=== PATIENT | female | born 1980 | race Caucasian/White ===

== ENCOUNTER 2017-12-13 08:23 | Emergency (ER) | payer OTHER ==
[~2017-12-13] VITALS: Ht 162.6 cm; Wt 177.5 kg
[~2017-12-13 08:23] MED LIST: AMLO5TAB22 PO; BACT800T5 PO; HYDR-3533 PO; LISI-363 PO; TAB-TAB PO
[2017-12-13 08:26] VITALS: BP 176/105; PULSE 109; RESP 16; TEMP 98
[2017-12-13] MEDS ORDERED: NIFE20 PO (08:36)
[2017-12-13] MEDS ORDERED: CLON0.1T PO (08:36)
[2017-12-13] MEDS ORDERED: LABE300T PO (08:36)
--- NOTE | 2017-12-13 09:46 | PD ---
HPI Chief Complaint: Back/ Neck Pain or Injury Time Seen by Provider: 09:10 Travel History International Travel<30 days: No Contact w/Intl Traveler<30days: No Traveled to known affect area: No History of Present Illness HPI 37-year-old female with nontraumatic low back pain 1 week. Cannot recall specific injury or trauma. She reports pain is located to her low back. Worse with movement and twisting of the torso. Slightly relieved with rest. Symptom severity is mild to moderate. Slightly relieved with [id number] Motrin. She denies fever, incontinence, saddle anesthesia, paresthesia or weakness of the extremities. PFSH Past Medical History Arthritis: Yes Asthma: Yes Autoimmune Disease: No Bipolar Disorder: Yes Anxiety: Yes Depression: No Heart Rhythm Problems: Yes (IRREGULAR) Cancer: No Cardiac Catheterization: Yes Cardiovascular Problems: Yes High Cholesterol: Yes Chemotherapy: No Chest Pain: Yes Congestive Heart Failure: No COPD: Yes Cerebrovascular Accident: No Diabetes: No Diminished Hearing: No Endocrine: No Gastrointestinal Disorders: Yes (choleycystectomy apr 2012) GERD: No Genitourinary: Yes Headaches: No Hiatal Hernia: No Hypertension: Yes Immune Disorder: No Implanted Vascular Access Dvce: No Kidney Stones: Yes (2009) Musculoskeletal: Yes (DDD) Neurologic: Yes Psychiatric: Yes Reproductive: No Respiratory: Yes Immunizations Current: Yes Migraines: Yes Myocardial Infarction: Yes ("mild heart attack") Radiation Therapy: No Renal Failure: No Seizures: No Sickle Cell Disease: No Sleep Apnea: Yes (NGA) Thyroid Disease: No Ulcer: No Influenza Vaccination: Yes PNEUMOCCOCAL Vaccine (Year): 2009 ?: Not Menopausal: No : 0 Past Surgical History Abdominal Surgery: Yes (gastric bi-pass january 2013. ) AICD: No Arteriovenous Shunt: No Cardiac Surgery: No Cholecystectomy: Yes Coronary Artery Bypass Graft: No Ear Surgery: No Endocrine Surgery: Yes (TONSILLECTOMY AND ADENOIDECTOMY-3 YRS OLD) Eye Surgery: No Genitourinary Surgery: No Gynecologic Surgery: No Insulin Pump: No Joint Replacement: No Neurologic Surgery: No Oral Surgery: No Pacemaker: No Thoracic Surgery: No Tonsillectomy: Yes Other Surgery: Yes (ADENOIDS) Family History Family Myocardial Infarction: Yes Social History Alcohol Use: No Tobacco Use: No Substance Use: No Allergies-Medications (Allergen,Severity, Reaction): Coded Allergies: Fish Containing Products (Unverified Allergy, Severe, Rash, 12/13/17) alprazolam (Unverified Allergy, Severe, RASH???, 12/13/17) levetiracetam (Unverified Allergy, Severe, Swelling, 12/13/17) lorazepam (Unverified Allergy, Severe, RASH??, 12/13/17) metoclopramide (Unverified Allergy, Severe, Swelling, 12/13/17) nitrofurantoin (Unverified Allergy, Severe, HIVES, 12/13/17) oxycodone (Unverified Allergy, Severe, RASH, 12/13/17) tramadol (Unverified Allergy, Severe, UNKNOWN, 12/13/17) acetaminophen (Unverified Allergy, Mild, Rash, 12/13/17) azithromycin (Unverified Allergy, Mild, rash, 12/13/17) codeine (Unverified Allergy, Mild, Rash, 12/13/17) Reported Meds & Prescriptions Reported Meds & Active Scripts Active Reported Clonidine (Clonidine HCl) 0.1 Mg Tab 0.1 Mg PO HS Nifedipine 20 Mg Cap 30 Mg PO BID Labetalol (Labetalol HCl) 300 Mg Tab 300 Mg PO BID Review of Systems Except as stated in HPI: all other systems reviewed are Neg General / Constitutional: No: Fever Genitourinary: No: Dysuria Physical Exam Narrative GENERAL: Alert and well-appearing 37-year-old SKIN: Warm and dry. HEAD: Normocephalic. EYES: No scleral icterus. No injection or drainage. NECK: Supple CARDIOVASCULAR: Regular rate and rhythm RESPIRATORY: Breath sounds equal bilaterally. No accessory muscle use. GASTROINTESTINAL: Abdomen soft, non-tender, nondistended. MUSCULOSKELETAL: No cyanosis, or edema. Normal strength and sensation in lower extremities. BACK: +TTP lumbar spine. No erythema, fluctuance or evidence of pilonidal cyst. Without obvious deformity. No CVA tenderness. Data Data Last Documented VS Vital Signs Date Time Temp Pulse Resp B/P (MAP) Pulse Ox O2 Delivery O2 Flow Rate FiO2 12/13/17 08:26 98.0 109 16 176/105 (128) Orders Orders Ed Urine Pregnancytest Poc (12/13/17 09:32) Spine, Lumbar - Ltd (Ap & Lat) (12/13/17 ) MDM Medical Decision Making Medical Screen Exam Complete: Yes Emergency Medical Condition: Yes Interpretation(s) Urine negative Differential Diagnosis Lumbar strain, herniated disc, lumbar fracture, pilonidal cyst Narrative Course 29-year-old female here with low back pain 1 week. She is well-appearing. Diagnosis Primary Impression: Lumbar strain Qualified Codes: S39.012A - Strain of muscle, fascia and tendon of lower back , initial encounter Referrals: Primary Care Physician Additional Instructions: Medication as directed Light stretching Follow-up with your primary doctor Scripts Methocarbamol (Robaxin) 750 Mg Tab 750 MG PO QID for Muscle Spasm, #15 TAB 0 Refills Prov: Sydni Persaud 12/13/17 Meloxicam (Meloxicam) 15 Mg Tab 15 MG PO DAILY for Arthritis Pain, #30 TAB 0 Refills Prov: Sydni Persaud 12/13/17 Disposition: 01 DISCHARGE HOME Condition: Stable Sydni Persaud Dec 13, 2017 09:46
--- NOTE | 2017-12-13 10:11 | RADRPT ---
EXAM DATE/TIME: 12/13/2017 09:46 [facility] COMPARISON: No previous studies available for comparison. INDICATIONS : Low back pain MEDICAL HISTORY : Hypertension. Myocardial infarction. DDD SURGICAL HISTORY : Gastric bypass. Cholecystectomy. ENCOUNTER: Initial ACUITY: 2 weeks PAIN SCORE: 9/10 LOCATION: low back FINDINGS: There is a moderate severity curvature of the thoracolumbar spine convex towards the right. In later al projection, vertebral bodies of the lumbar spine are in normal alignment with preservation of vert ebral body height. Posterior elements pedicles and transverse processes are intact. Flocculent calc ification in the pelvis probably related to uterine fibroids. Moderate stool within the pelvic colon . CONCLUSION: No evidence of compression deformity or spondylolisthesis. Moderate right scoliosis. Charles Caal MD on December 13, 2017 at 10:07 Board Certified Radiologist. This report was verified electronically.
[2017-12-13] MEDS ORDERED: ROBA750T PO (10:26)
[2017-12-13] MEDS ORDERED: MELO15TA20 PO (10:26)
[2017-12-13] MEDS ORDERED: KETOROLAC TROMETHAMINE 60 MG/2 ML (IM) VIAL IM ONE (10:30)
[2017-12-13 10:32] VITALS: BP 152/91
== END 2017-12-13 11:05 | disposition home or self-care (01) ==
LOC: PHEFT 08:23
DX: S39.012A Strain of muscle, fascia and tendon of lower back, initial encounter (principal); X58.XXXA Exposure to other specified factors, initial encounter; F31.9 Bipolar disorder, unspecified; F41.9 Anxiety disorder, unspecified; I10 Essential (primary) hypertension; E78.00 Pure hypercholesterolemia, unspecified; M19.90 Unspecified osteoarthritis, unspecified site; J44.9 Chronic obstructive pulmonary disease, unspecified; I25.2 Old myocardial infarction
CPT/HCPCS: 72100; 84703; 96372; 99283; J1885

== ENCOUNTER 2018-01-19 20:21 | Emergency (ER) | payer OTHER ==
[~2018-01-19] VITALS: Ht 162.6 cm; Wt 174.0 kg
[~2018-01-19 20:21] MED LIST changes: -AMLO5TAB22 PO; -BACT800T5 PO; +CLON0.1T PO; -HYDR-3533 PO; +LABE300T PO; -LISI-363 PO; +MELO15TA20 PO; +NIFE20 PO; +ROBA750T PO; -TAB-TAB PO
[2018-01-19 20:31] VITALS: BP 161/96; PULSE 92; RESP 18; TEMP 99.1; O2SAT 98
--- NOTE | 2018-01-19 20:51 | PD ---
HPI Chief Complaint: Musculoskeletal Complaint Time Seen by Provider: 20:44 Travel History International Travel<30 days: No Contact w/Intl Traveler<30days: No Traveled to known affect area: No History of Present Illness HPI 37-year-old female complains of left hand pain. Patient states that she found this evening. Patient denies loss of consciousness. Patient denies any headache or neck pain. Patient states that she hyperflexed her left index finger. Patient complained of sharp pain localized the left hand especially at the base of the left index finger. Patient denies any pain radiation. Patient states that the pain is worse with movement of the fingers. On a scale of 1-10 the pain is an 8. Patient denies any chance of being . PFSH Past Medical History Arthritis: Yes Asthma: Yes Autoimmune Disease: No Bipolar Disorder: Yes Anxiety: Yes Depression: No Heart Rhythm Problems: Yes (IRREGULAR) Cancer: No Cardiac Catheterization: Yes Cardiovascular Problems: Yes High Cholesterol: Yes Chemotherapy: No Chest Pain: Yes Congestive Heart Failure: No COPD: Yes Cerebrovascular Accident: No Diabetes: No Diminished Hearing: No Endocrine: No Gastrointestinal Disorders: Yes (choleycystectomy apr 2012) GERD: No Genitourinary: Yes Headaches: No Hiatal Hernia: No Hypertension: Yes Immune Disorder: No Implanted Vascular Access Dvce: No Kidney Stones: Yes (2009) Musculoskeletal: Yes (DDD) Neurologic: Yes Psychiatric: Yes Reproductive: No Respiratory: Yes Immunizations Current: Yes Migraines: Yes Myocardial Infarction: Yes ("mild heart attack") Radiation Therapy: No Renal Failure: No Seizures: No Sickle Cell Disease: No Sleep Apnea: Yes (NGA) Thyroid Disease: No Ulcer: No PNEUMOCCOCAL Vaccine (Year): 2009 ?: Unknown LMP: 12/26/17 Menopausal: No : 0 Past Surgical History Abdominal Surgery: Yes (gastric bi-pass january 2013. ) AICD: No Arteriovenous Shunt: No Cardiac Surgery: No Cholecystectomy: Yes Coronary Artery Bypass Graft: No Ear Surgery: No Endocrine Surgery: Yes (TONSILLECTOMY AND ADENOIDECTOMY-3 YRS OLD) Eye Surgery: No Genitourinary Surgery: No Gynecologic Surgery: No Insulin Pump: No Joint Replacement: No Neurologic Surgery: No Oral Surgery: No Pacemaker: No Thoracic Surgery: No Tonsillectomy: Yes Other Surgery: Yes (ADENOIDS) Social History Alcohol Use: No Tobacco Use: No Substance Use: No Allergies-Medications (Allergen,Severity, Reaction): Coded Allergies: Fish Containing Products (Unverified Allergy, Severe, Rash, 01/19/18) alprazolam (Unverified Allergy, Severe, RASH???, 01/19/18) levetiracetam (Unverified Allergy, Severe, Swelling, 01/19/18) lorazepam (Unverified Allergy, Severe, RASH??, 01/19/18) metoclopramide (Unverified Allergy, Severe, Swelling, 01/19/18) nitrofurantoin (Unverified Allergy, Severe, HIVES, 01/19/18) oxycodone (Unverified Allergy, Severe, RASH, 01/19/18) tramadol (Unverified Allergy, Severe, UNKNOWN, 01/19/18) acetaminophen (Unverified Allergy, Mild, Rash, 01/19/18) azithromycin (Unverified Allergy, Mild, rash, 01/19/18) codeine (Unverified Allergy, Mild, Rash, 01/19/18) Reported Meds & Prescriptions Reported Meds & Active Scripts Active Reported Clonidine (Clonidine HCl) 0.1 Mg Tab 0.1 Mg PO HS Nifedipine 20 Mg Cap 30 Mg PO BID Labetalol (Labetalol HCl) 300 Mg Tab 300 Mg PO BID Review of Systems General / Constitutional: No: Fever Eyes: No: Visual changes HENT: No: Headaches Cardiovascular: No: Chest Pain or Discomfort Respiratory: No: Shortness of Breath Gastrointestinal: No: Abdominal Pain Genitourinary: No: Dysuria Musculoskeletal: Positive: Pain Skin: No Rash Neurologic: No: Weakness Psychiatric: No: Depression Endocrine: No: Polydipsia Hematologic/Lymphatic: No: Easy Bruising Physical Exam Narrative GENERAL: Well-nourished, well-developed patient. SKIN: Focused skin assessment warm/dry. HEAD: Normocephalic. EYES: No scleral icterus. No injection or drainage. NECK: Supple, trachea midline. No JVD or lymphadenopathy. CARDIOVASCULAR: Regular rate and rhythm without murmurs, gallops, or rubs. RESPIRATORY: Breath sounds equal bilaterally. No accessory muscle use. GASTROINTESTINAL: Abdomen soft, non-tender, nondistended. MUSCULOSKELETAL: No cyanosis, or edema. BACK: Nontender without obvious deformity. No CVA tenderness. Patient has soft tissue swelling ecchymosis tenderness distal aspect of the second metacarpal at the base of the left index finger. Limited range of motion of the left index finger secondary to pain. Data Data Last Documented VS Vital Signs Date Time Temp Pulse Resp B/P (MAP) Pulse Ox O2 Delivery O2 Flow Rate FiO2 01/19/18 20:31 99.1 92 18 161/96 (117) 98 Orders Orders Hand, Complete ([id number]) (01/19/18 20:46) Splint Or Brace Apply/Monitor (01/19/18 21:47) Ibuprofen (Motrin) (01/19/18 22:00) Ed Discharge Order (01/19/18 21:49) MDM Medical Decision Making Medical Screen Exam Complete: Yes Emergency Medical Condition: Yes Interpretation(s) Last Impressions Hand X-Ray 01/19/182045 Signed Impressions: CONCLUSION: Negative examination Differential Diagnosis Differential diagnoses including contusion, fracture, dislocation. Narrative Course 37-year-old female with left hand injury. Status post fall. Finger splint. Diagnosis Primary Impression: Fracture of phalanx of left index finger Qualified Codes: S62.641A - Nondisplaced fracture of proximal phalanx of left index finger, initial encounter for closed fracture Patient Instructions: General Instructions Med/Other Pt SpecificInfo: Prescription(s) given Scripts Ibuprofen (Ibuprofen) 600 Mg Tab 600 MG PO TID for Pain, #30 TAB 0 Refills Prov: Vern Foss MD 01/19/18 Disposition: 01 DISCHARGE HOME Condition: Stable Vern Foss MD Jan 19, 2018 20:51
--- NOTE | 2018-01-19 21:19 | RADRPT ---
EXAM DATE: 01/19/2018 9:04 PM EDT AGE/SEX: 37 years / Female INDICATIONS: Left 1st and 2nd metacarpal pain after patient hit hand today CLINICAL DATA: This is the patient's initial encounter. Patient reports that signs and symptoms have been present for 1 day and indicates a pain score of 5/10. MEDICAL/SURGICAL HISTORY: None. None. COMPARISON: None. FINDINGS: Bony structures are intact and in normal alignment. Osseous density is normal. Soft tissues are unre markable. No radiopaque foreign bodies seen. CONCLUSION: Negative examination Electronically signed by: Charles Weathers MD 01/19/2018 9:17 PM EDT
[2018-01-19] MEDS ORDERED: IBUP-232 PO (21:51)
[2018-01-19] MEDS ORDERED: IBUPROFEN 600 MG TAB PO ONE (22:00)
== END 2018-01-19 21:58 | disposition home or self-care (01) ==
LOC: PHEFT 20:21
DX: S62.641A Nondisplaced fracture of proximal phalanx of left index finger, initial encounter for closed fracture (principal); W19.XXXA Unspecified fall, initial encounter; F31.9 Bipolar disorder, unspecified; F41.9 Anxiety disorder, unspecified; E78.00 Pure hypercholesterolemia, unspecified; I10 Essential (primary) hypertension; J44.9 Chronic obstructive pulmonary disease, unspecified; I25.2 Old myocardial infarction; G47.33 Obstructive sleep apnea (adult) (pediatric)
CPT/HCPCS: 29130; 73130